=== PATIENT | female | born 1950 | race Caucasian/White ===

== ENCOUNTER 2016-12-25 20:20 | Emergency (ER) | payer MEDICARE, OTHER ==
[~2016-12-25] VITALS: Ht 162.6 cm; Wt 90.9 kg
[2016-12-25 20:22] VITALS: BP 203/90; PULSE 79; RESP 16; TEMP 97.8; O2SAT 98
[2016-12-26] MEDS ORDERED: GABA300C5 PO (00:49)
[2016-12-26] MEDS ORDERED: LISI2.5T3 PO (00:49)
[2016-12-26] MEDS ORDERED: OXYC1CAP PO (00:49)
[2016-12-26] MEDS ORDERED: INSU1INJ14 SQ (00:49)
[2016-12-26] MEDS ORDERED: SULFAMETHOXAZOLE-TRIMETHOPRIM DS 800-160 MG TAB PO ONE (01:00)
[2016-12-26] MEDS ORDERED: CEPHALEXIN MONOHYDRATE 500 MG CAP PO ONE (01:00)
[2016-12-26] MEDS ORDERED: cloNIDine HCL 0.1 MG TAB PO ONE (01:00)
[2016-12-26] MEDS ORDERED: BACT800T5 PO (01:15)
[2016-12-26] MEDS ORDERED: CEPH-460 PO (01:15)
--- NOTE | 2016-12-26 01:30 | PD ---
HPI Chief Complaint: Skin Problem Time Seen by Provider: 00:38 Travel History International Travel<30 days: No Contact w/Intl Traveler<30days: No Traveled to known affect area: No History of Present Illness HPI The patient is a 66 year old female who presents to the [facility] emergency department with a history of on Sunday noticing a bump on the left lateral knee that she thought was an insect bite. The patient denies it being itchy, however it was slightly sore to the touch. She reports that since then the areas become more erythematous and began to have a yellow drainage. She reports that she tried to go to see her primary care physician, however they had no openings. She reports that in the past she does recall having a history of a wound infection down in the groin, however she reports the culture was negative for MRSA. She denies any fevers or chills. She denies any nausea or vomiting. She reports that she last checked her blood sugar 2 days ago and was found to be 119. The patient is currently visiting her in the emergency department. She reports that she's been here all day related to him being in the emergency department for an accident. She reports that she noticed that her blood pressure was elevated when she went home and took her medication. On arrival her blood pressures a systolic in the low 200s. She reports that she took her lisinopril earlier today. The patient denies any history of headache, cough, congestion, neck pain, chest pain, shortness of breath, abdominal pain, urinary symptoms, or neurologic symptoms. PFS Past Medical History Narrative Medical The patient's past medical history is significant for diabetes mellitus, hypertension, history of a skin infection in the past that was negative for MRSA on culture, history of chronic neck and back pain, history of neuropathy, history of cervical cancer. Cancer: Yes (CERVICAL) Diabetes: Yes Patient Takes Glucophage: No Hypertension: Yes Tetanus Vaccination: Unknown Influenza Vaccination: No Past Surgical History Narrative Surgical The patient has a history of a breast reduction, HEENT stimulator implant, cervical fusion, hysterectomy, cholecystectomy, bladder lift. Cholecystectomy: Yes Genitourinary Surgery: Yes (BLADDER LIFT) Hysterectomy: Yes Neurologic Surgery: Yes (CERVICAL SPINE) Other Surgery: Yes (BREAST REDUCTION; PAIN STIMULATOR) Social History Alcohol Use: Yes (OCCASIONALLY) Tobacco Use: No Substance Use: No Allergies-Medications (Allergen,Severity, Reaction): Uncoded Allergies: NKA (Allergy, Unknown, 07/21/03) Reported Meds & Prescriptions Reported Meds & Active Scripts Active Bactrim DS (Sulfamethoxazole-Trimethoprim) 800-160 Mg Tab 1 Tab PO BID Keflex (Cephalexin) 500 Mg Cap 500 Mg PO Q6H Reported Tresiba Flextouch Pen Inj (Insulin Degludec Inj) 300 unit/3 ML Pen 1 Units SQ TID Oxycodone (Oxycodone HCl) 5 Mg Cap 5 Mg PO Q4H PRN Gabapentin 300 Mg Cap 300 Mg PO BID Lisinopril 2.5 Mg Tab Unknown Dose PO DAILY Review of Systems Except as stated in HPI: all other systems reviewed are Neg General / Constitutional: No: Fever, Chills Eyes: No: Visual changes HENT: No: Headaches Cardiovascular: No: Chest Pain or Discomfort Respiratory: No: Shortness of Breath Gastrointestinal: No: Nausea, Vomiting, Diarrhea, Abdominal Pain Genitourinary: No: Dysuria Musculoskeletal: No: Pain Skin: Positive Lumps, No Rash Neurologic: No: Weakness, Focal Abnormalities, Coordination Problem, Change in Mentation, Slurred Speech, Sensory Disturbance Psychiatric: No: Depression Endocrine: No: Polydipsia Hematologic/Lymphatic: No: Easy Bruising Physical Exam Narrative General: The patient is a well-developed well-nourished female in no acute distress. Head and Neck exam: Head is normocephalic atraumatic. Eyes: Pupils are equal round and reactive to light. Nose: Midline septum with pink mucous membranes Mouth: Dentition unremarkable. Moist mucus membranes. Posterior oropharynx is not erythematous. No tonsillar hypertrophy. Uvula midline. Airway patent. Neck: No palpable lymphadenopathy. No nuchal rigidity. No thyromegaly. Cardiovascular: Regular rate and rhythm without murmurs, gallops, or rubs. Lungs: Clear to auscultation bilaterally. No wheezes, rhonchi, or rales. Abdomen: Soft, without tenderness to palpation in all 4 quadrants of the abdomen. No guarding, rebound, or rigidity. Normal bowel sounds are audible. Extremities: No clubbing, cyanosis, or edema. 2+ pulses in all 4 extremities. No calf tenderness on palpation. No loss of range of motion of the area of interest, the left knee. The patient has no ligament laxity. The patient has an erythematous papule along the left lateral knee with a clear drainage noted. This was cultured. The patient has a small surrounding area of of pinkness and slight induration. There is no fluctuance or crepitus. Neurologic Exam: Grossly nonfocal. Data Data Last Documented VS Vital Signs Date Time Temp Pulse Resp B/P Pulse Ox O2 Delivery O2 Flow Rate FiO2 12/26/16 00:30 83 19 12/25/16 20:22 97.8 203/90 98 Room Air Orders Wound Culture And Gram Stain (12/26/16 00:57) Clonidine (Catapres) (12/26/16 01:00) Sulfamet-Trimeth Ds 800-160 Mg (Bactrim (12/26/16 01:00) Cephalexin (Keflex) (12/26/16 01:00) MDM Medical Decision Making Medical Screen Exam Complete: Yes Emergency Medical Condition: Yes Medical Record Reviewed: Yes Differential Diagnosis MRSA skin infection, versus inflamed insect bite, versus other bacterial skin infection Narrative Course During the course of the patients emergency department visit, the patients history, examination, and differential diagnosis were reviewed with the patient. The patient had a wound culture collected by me. The patient's blood pressure was a low 200s systolic. The patient was given clonidine 0.1 by mouth 1 when on reevaluation after 10 minutes of sitting her blood pressure continued to be elevated. I suspect that the patient's blood pressure elevation is related to being in the hospital all day and under increased stress as her was in an accident. The patient was given Keflex 500 by mouth times one, Bactrim DS 1 by mouth 1. The patient's blood pressure will be monitored for improvement. The patient is resting comfortably and feels better, is alert and in no distress. The patients examination findings were discussed with her. The repeat examination is unremarkable and benign. The history, exam, diagnostic testing, and current condition do not suggest any significant pathology to warrant further testing, continued ED treatment, admission, or surgical evaluation at this point. The vital signs have been stable. The patient does not have uncontrollable pain, intractable vomiting, or other significant symptoms. The patient's condition is stable and appropriate for discharge. The patient will pursue further outpatient evaluation with a primary care physician or other designated or consulting physician as indicated in the discharge instructions. The patient expressed understanding and was agreeable with this plan. Diagnosis Primary Impression: Skin infection, bacterial Additional Impression: Hypertension Qualified Code: I10 - Essential hypertension Referrals: Primary Care Physician 3 days Patient Instructions: Cellulitis (ED), General Instructions, Hypertension (ED) Med/Other Pt SpecificInfo: Prescription(s) given Scripts Sulfamethoxazole-Trimethoprim (Bactrim DS)800-160 Mg Tab1 Tab PO BID #20 TAB Ref 0 Prov:Adriana Luna MD 12/26/16 Cephalexin (Keflex)500 Mg Apa661 Mg PO Q6H #40 CAP Ref 0 Prov:Adriana Luna MD 12/26/16 Disposition: 01 DISCHARGE HOME Condition: Stable Adriana Luna MD Dec 26, 2016 01:30
[2016-12-26 01:51] VITALS: BP 183/82; PULSE 75; RESP 20; O2SAT 98
[2016-12-26 03:00] VITALS: BP 160/75; PULSE 77; RESP 20; O2SAT 99
== END 2016-12-26 03:44 | disposition home or self-care (01) ==
LOC: NEPC 20:20
DX: L08.9 Local infection of the skin and subcutaneous tissue, unspecified (principal); B95.62 Methicillin resistant Staphylococcus aureus infection as the cause of diseases classified elsewhere; I10 Essential (primary) hypertension; E11.9 Type 2 diabetes mellitus without complications
CPT/HCPCS: 86403; 87070; 87186; 99283

== ENCOUNTER → 2017-07-04 | Day surgery (SDC) | payer MEDICARE ==
[~2017-07-04] MED LIST: ATROPINE SULFATE 1% OPHT SOLN 5 ML BTL ONE; BACT800T5 PO; CEPH-460 PO; DEXAMETHASONE SOD PHOS 4 MG/ML VIAL ONE; EPINEPHrine HCL (1:1000) 1 MG/ML VIAL ONE; FLURBIPROFEN 0.03% OPHT SOLN 2.5 ML BTL ONE; GABA300C5 PO; HYALURONIDASE/LIDOCAINE/BUPIVACAINE 11 ML SYR TL ONE; INSU1INJ14 SQ; LACTATED RINGER'S 1000 ML INJ 1,000 ML ONE; LISI2.5T3 PO; NEOMYCIN/POLYMYXIN/DEXAMETHASONE OPTH OINT 3.5 GM TUBE ONE; OXYC1CAP PO; PHENYLEPHRINE HCL 2.5% OPTH SOLN 2 ML BTL ONE; PROPOFOL 200 MG/20 ML AMP IV ONE; SODIUM CHLORIDE 0.9% INJ 10 ML ONE; TETRACAINE 0.5% OPTH SOLN 4 ML BTL ONE; TRIAMCINOLONE ACETONIDE 40 MG/ML VIAL ONE; TROPICAMIDE 1% OPHT SOLN 15 ML BTL ONE; ceFAZolin INJ 1,000 MG VIAL ONE
--- NOTE | 2017-07-09 10:07 | TN ---
cc: BEBETO SHARPE MD DATE OF SURGERY: 07/04/2017 DATE OF : 1950 PREOPERATIVE DIAGNOSIS Severe nonproliferative diabetic retinopathy and epiretinal membrane, right eye. POSTOPERATIVE DIAGNOSIS Severe nonproliferative diabetic retinopathy and epiretinal membrane, right eye. PROCEDURE Pars plana vitrectomy, membrane peeling, endolaser, right eye. ANESTHESIA MAC. SURGEON Antonieta. COMPLICATIONS None. DETAILS OF PROCEDURE After informed consent was obtained the patient was brought to the operating room and placed under brief anesthesia with Propofol. 10 cc of 50/50 mixture of 0.75% Marcaine and 2% lidocaine was placed in a modified Van Lint lid block as well as peribulbar injection. The patient was then prepared and draped in the usual sterile fashion. A wide lid speculum was placed in the patient's right eye. 23-gauge vitrectomy cannulas were then placed in the lower temporal, superotemporal and superonasal quadrants, 3 mm posterior to the cornea scleral limbus. An infusion cannula was placed lower temporally. A core vitrectomy was then performed. The vitrectomy was carried out as far as possible to the vitreous base. Attention was then turned to the posterior pole where there was an epiretinal membrane covering the surface of the macula. It was carefully peeled off the macula with intraocular forceps. The same was then done for the internal limiting membrane. Careful indirect ophthalmoscopy with scleral depression was then performed and no peripheral retinal breaks were noted. The three vitrectomy cannulas were then removed. Subconjunctival injections of dexamethasone and Ancef were placed. An Atropine drop, Maxitrol ointment and a patch and shield were then applied. The patient tolerated the procedure well. There were no complications. ADDENDUM The patient had severe nonproliferative diabetic retinopathy and endolaser was used to place some peripheral panretinal photocoagulation so as not to induce proliferative diabetic retinopathy. She will [facility]. Bebeto Sharpe MD TAB/BT /2:10 PM /9:41 AM
== END | disposition home or self-care (01) ==
LOC: ESDC 11:50
PROVIDERS: ATTEND Ophthalmology Retina Specialist
DX: E11.3491 Type 2 diabetes mellitus with severe nonproliferative diabetic retinopathy without macular edema, right eye (principal); Z79.4 Long term (current) use of insulin; H35.371 Puckering of macula, right eye
CPT/HCPCS: 00145; 67043; 82948; J0171; J0690; J1100; J3301; J7120